=== PATIENT | female | born 1945 | race Caucasian/White ===

== ENCOUNTER → 2017-06-23 | Outpatient (CLI) | payer OTHER ==
[~2017-06-23] MED LIST: ASPIR 8181 M1 PO; ATIVAN1 MG PO; CALCIUM 500 MG1 EACH PO; CLONAZEPAM0.5 MG PO; GINKGO BILOBA40 M1 PO; HYDROCHLOROTHIA25 MG PO; L-LYSINE500 M1 PO; LEVOTHYROXINE75 MCG PO; MSM1000 MG PO; PAXIL10 MG PO; PROBIOTIC1 EAC4 PO; VASOTEC20 MG PO; VITAMIN B122500 MCG PO; VITAMIN C500 M6 PO; VITAMIN D31000 UNIT PO; WELLBUTRIN SR100 MG PO; XANAX0.5 MG PO; ZOCOR10 MG PO
== END | disposition home or self-care (01) ==
LOC: OPR 08:31 → EDSTATUS 09:00
PROC: 0JB63ZX Excision of Chest Subcutaneous Tissue and Fascia, Percutaneous Approach, Diagnostic (ICD-10-PCS; principal; 2017-06-23)
DX: R22.2 Localized swelling, mass and lump, trunk (principal); Z85.850 Personal history of malignant neoplasm of thyroid; E89.0 Postprocedural hypothyroidism; I10 Essential (primary) hypertension; E78.5 Hyperlipidemia, unspecified; M19.90 Unspecified osteoarthritis, unspecified site; Z86.010 Personal history of colon polyps; Z90.710 Acquired absence of both cervix and uterus; Z79.82 Long term (current) use of aspirin; Z80.1 Family history of malignant neoplasm of trachea, bronchus and lung; Z80.3 Family history of malignant neoplasm of breast; Z80.0 Family history of malignant neoplasm of digestive organs; Z80.41 Family history of malignant neoplasm of ovary; Z80.49 Family history of malignant neoplasm of other genital organs; Z82.3 Family history of stroke
CPT/HCPCS: 77012; 85027; 85610; 85730; 88305; 88341 TC; 88342 TC

== ENCOUNTER → 2017-07-12 | Outpatient (CLI) | payer MEDICARE, OTHER | END | disposition home or self-care (01) | LOC: CDC 12:14 | DX: R22.2 Localized swelling, mass and lump, trunk (principal) | CPT/HCPCS: 93000 ==

== ENCOUNTER 2017-07-19 22:11 | Inpatient (IN) | payer OTHER ==
[~2017-07-19] VITALS: Ht 142.2 cm; Wt 88.5 kg
[2017-07-20] VITALS (9 sets, daily range): BP systolic 133–172; BP diastolic 64–107
[2017-07-20 07:12] LABS: PTT 28.4 SEC (25-37)
[2017-07-21] VITALS (11 sets, daily range): BP systolic 108–168; BP diastolic 59–79
[2017-07-21 05:28] LABS: HEMATOCRIT 31.4 % (36.0-46.0); MCH 29.4 PG (29.0-34.0); MCHC 33.4 G/DL (30.0-36.0); PLATELET COUNT 268 K/uL (156-360); RBC DIS.WIDTH-CV 13.5 % (11.8-14.6); RBC DIS.WIDTH-SD 43.7 % (39-53); WHITE BLOOD COUNT 10.4 K/uL (4.1-10.2)
[2017-07-21 05:55] LABS: CHLORIDE 97 MEQ/L (99-109); CREATININE 0.9 MG/DL (0.6-1.3); GFR ESTIMATE (CALCULATED) > 59 mL/min/; GLUCOSE 108 mg/dL (70-99); POTASSIUM 3.9 MEQ/L (3.7-5.4); SODIUM 135 MEQ/L (136-147); UREA NITROGEN (BUN) 20 mg/dL (9-23)
[2017-07-21 06:11] LABS: HEMOGLOBIN 10.5 G/DL (11.9-15.5); RED BLOOD COUNT 3.57 M/uL (3.80-5.20)
[2017-07-22] VITALS (13 sets, daily range): BP systolic 120–154; BP diastolic 55–77
[2017-07-22 05:43] LABS: HEMATOCRIT 31.1 % (36.0-46.0); HEMOGLOBIN 10.3 G/DL (11.9-15.5); MCH 29.3 PG (29.0-34.0); MCHC 33.1 G/DL (30.0-36.0); MCV 88.4 FL (83-99); PLATELET COUNT 244 K/uL (156-360); RBC DIS.WIDTH-CV 13.5 % (11.8-14.6); RBC DIS.WIDTH-SD 43.6 % (39-53); RED BLOOD COUNT 3.52 M/uL (3.80-5.20); WHITE BLOOD COUNT 8.6 K/uL (4.1-10.2)
[2017-07-22 06:09] LABS: CHLORIDE 97 MEQ/L (99-109); CREATININE 0.9 MG/DL (0.6-1.3); GFR ESTIMATE (CALCULATED) > 59 mL/min/; GLUCOSE 106 mg/dL (70-99); POTASSIUM 3.9 MEQ/L (3.7-5.4); SODIUM 134 MEQ/L (136-147); UREA NITROGEN (BUN) 17 mg/dL (9-23)
[2017-07-23] VITALS (10 sets, daily range): BP systolic 97–164; BP diastolic 55–94
[2017-07-23 04:46] LABS: HEMATOCRIT 31.2 % (36.0-46.0); HEMOGLOBIN 10.6 G/DL (11.9-15.5); MCH 29.8 PG (29.0-34.0); MCV 87.6 FL (83-99); PLATELET COUNT 254 K/uL (156-360); RBC DIS.WIDTH-CV 13.4 % (11.8-14.6); RBC DIS.WIDTH-SD 43.8 % (39-53); RED BLOOD COUNT 3.56 M/uL (3.80-5.20); WHITE BLOOD COUNT 7.7 K/uL (4.1-10.2)
[2017-07-24] VITALS (9 sets, daily range): BP systolic 103–157; BP diastolic 54–68
[2017-07-24] MEDS ORDERED: ENDOCET 5-3251 EACH PO (18:44)
[2017-07-24] MEDS ORDERED: MOTRIN600 MG PO (18:44)
[2017-07-24] MEDS ORDERED: DOCUSATE SODIU100 MG PO (18:44)
== END 2017-07-24 19:45 | disposition home or self-care (01) | DRG 827 ==
LOC: ENRESERV 22:11 → 2SOUTH 07-20 06:15 → ENRESERV 07-20 12:02 → 2SOUTH 07-20 12:59 → ENRESERV 07-20 13:27 → 2SOUTH 07-20 14:45 → 4WEST 07-20 14:59 → 2SOUTH 07-20 15:09 → 4WEST 07-24 19:45
PROVIDERS: Surgery; Thoracic Surgery (Cardiothoracic Vascular Surgery)
DX: C37 Malignant neoplasm of thymus (principal); I10 Essential (primary) hypertension; F32.9 Major depressive disorder, single episode, unspecified; M19.90 Unspecified osteoarthritis, unspecified site; E66.9 Obesity, unspecified; Z68.41 Body mass index [BMI] 40.0-44.9, adult
CPT/HCPCS: 71045; 80048; 85027; 85610; 85730; 86850; 86900; 86901; 86920; 87641; 88307; 94640; 94640 76; 97530 GO; 99202; J0690; J1100; J1170; J1644; J1885; J2405; J7120

== ENCOUNTER 2017-09-22 11:42 | Observation (INO) | payer OTHER ==
[~2017-09-22] VITALS: Ht 149.9 cm; Wt 87.9 kg
[~2017-09-22 11:42] MED LIST changes: +ACIDOPHILUS1 EAC3 PO; +CYANOCOBALAM1000 MCG PO; +DOCUSATE SODIU100 MG PO; +ENDOCET 5-3251 EACH PO; -GINKGO BILOBA40 M1 PO; +GINKGO BILOBA60 MG PO; -LEVOTHYROXINE75 MCG PO; +LEVOTHYROXINE88 MCG PO; +MOTRIN600 MG PO; -PROBIOTIC1 EAC4 PO; -VITAMIN B122500 MCG PO; +VITAMIN C W/AC500 M1 PO; -VITAMIN C500 M6 PO; -WELLBUTRIN SR100 MG PO; +WELLBUTRIN XL300 MG PO
[2017-09-22 12:38] LABS: BASOPHIL (%) 0.4 % (0-1); EOSINOPHIL (%) 1.6 % (0-5); EOSINOPHIL COUNT 0.1 K/uL (0-0.3); HEMATOCRIT 34.9 % (36.0-46.0); HEMOGLOBIN 11.7 G/DL (11.9-15.5); IMMATURE GRANULOCYTE (%) 0.3 % (0.0-0.7); LYMPHOCYTE (%) 8.5 % (15-42); LYMPHOCYTE COUNT 0.6 K/uL (1.0-2.8); MCH 28.5 PG (29.0-34.0); MCHC 33.5 G/DL (30.0-36.0); MCV 85.1 FL (83-99); MONOCYTE (%) 10.8 % (3-12); MONOCYTE COUNT 0.8 K/uL (0-0.8); NEUTROPHIL (%) 78.4 % (45-76); NEUTROPHIL COUNT 5.5 K/uL (1.8-6.4); PLATELET COUNT 315 K/uL (156-360); RBC DIS.WIDTH-CV 13.5 % (11.8-14.6); RBC DIS.WIDTH-SD 42.3 % (39-53)
[2017-09-22 12:49] LABS: CHLORIDE 100 mEq/L (99-109); POTASSIUM 3.8 mEq/L (3.7-5.4); SODIUM 138 mEq/L (136-147)
[2017-09-22 12:51] LABS: GLUCOSE 128 mg/dL (70-99)
[2017-09-22 12:55] LABS: CREATININE 0.8 mg/dL (0.6-1.3); GFR ESTIMATE (CALCULATED) > 59 mL/min/
[2017-09-22 12:56] LABS: UREA NITROGEN (BUN) 15 mg/dL (9-23)
[2017-09-22] MEDS ORDERED: ADVIL,NUPRIN,M200 MG PO (14:30)
[2017-09-22] MEDS ORDERED: TYLENOL EXTRA500 MG PO (14:30)
[2017-09-22] MEDS ORDERED: VAPOR INHALER50 MG BOTH NARES (14:30)
[2017-09-22 15:55] VITALS: BP 142/69
[2017-09-22 20:00] VITALS: BP 124/60
[2017-09-23 00:18] VITALS: BP 117/57
[2017-09-23 08:34] VITALS: BP 124/58
[2017-09-23 11:07] VITALS: BP 135/64
[2017-09-23] MEDS ORDERED: KEFLEX500 MG PO (12:09)
[2017-09-23] MEDS ORDERED: PREDNISONE5 MG PO (12:10)
== END 2017-09-23 15:25 | disposition home or self-care (01) ==
LOC: EME 11:42 → EDOF 14:55 → ENRESERV 15:02 → 4SOUTH 15:45
PROVIDERS: Emergency Medicine
DX: L03.116 Cellulitis of left lower limb (principal); L03.115 Cellulitis of right lower limb; I10 Essential (primary) hypertension; E89.0 Postprocedural hypothyroidism; E78.5 Hyperlipidemia, unspecified; D64.9 Anemia, unspecified; F41.9 Anxiety disorder, unspecified; F32.9 Major depressive disorder, single episode, unspecified; Z79.82 Long term (current) use of aspirin; Z98.890 Other specified postprocedural states; Z80.1 Family history of malignant neoplasm of trachea, bronchus and lung; Z88.8 Allergy status to other drugs, medicaments and biological substances
CPT/HCPCS: 73630; 80048; 83605; 85025; 87070; 87075; 87205; 99281; 99284; G0378; J0690; J1644; J2920; J2930

== ENCOUNTER 2017-10-20 11:06 | Inpatient (IN) | payer OTHER ==
[~2017-10-20] VITALS: Ht 142.2 cm; Wt 89.4 kg
[~2017-10-20 11:06] MED LIST changes: +ADVIL,NUPRIN,M200 MG PO; +KEFLEX500 MG PO; +PREDNISONE5 MG PO; +TYLENOL ARTHRI650 MG PO; +VAPOR INHALER50 MG BOTH NARES
[2017-10-20 13:51] LABS: HEMATOCRIT 35.3 % (36.0-46.0); HEMOGLOBIN 11.4 G/DL (11.9-15.5); MCH 27.7 PG (29.0-34.0); MCHC 32.3 G/DL (30.0-36.0); MCV 85.7 FL (83-99); PLATELET COUNT 272 K/uL (156-360); RBC DIS.WIDTH-CV 14.6 % (11.8-14.6); RBC DIS.WIDTH-SD 45.4 % (39-53); RED BLOOD COUNT 4.12 M/uL (3.80-5.20); WHITE BLOOD COUNT 7.5 K/uL (4.1-10.2)
[2017-10-20 14:03] LABS: CHLORIDE 100 mEq/L (99-109); POTASSIUM 3.9 mEq/L (3.7-5.4); SODIUM 139 mEq/L (136-147)
[2017-10-20 14:05] LABS: GLUCOSE 89 mg/dL (70-99)
[2017-10-20 14:08] LABS: CREATININE 0.8 mg/dL (0.6-1.3); GFR ESTIMATE (CALCULATED) > 59 mL/min/
[2017-10-20 14:09] LABS: UREA NITROGEN (BUN) 15 mg/dL (9-23)
[2017-10-20 16:57] VITALS: BP 144/67
[2017-10-20 23:35] VITALS: BP 116/57
[2017-10-21 04:03] VITALS: BP 160/69
[2017-10-21 05:58] LABS: HEMATOCRIT 33.8 % (36.0-46.0); HEMOGLOBIN 10.8 G/DL (11.9-15.5); MCH 27.6 PG (29.0-34.0); MCV 86.2 FL (83-99); PLATELET COUNT 222 K/uL (156-360); RBC DIS.WIDTH-CV 14.6 % (11.8-14.6); RBC DIS.WIDTH-SD 46.4 % (39-53); RED BLOOD COUNT 3.92 M/uL (3.80-5.20); WHITE BLOOD COUNT 5.6 K/uL (4.1-10.2)
[2017-10-21 06:07] LABS: CHLORIDE 100 MEQ/L (99-109); GFR ESTIMATE (CALCULATED) 58 mL/min/; GLUCOSE 103 mg/dL (70-99); POTASSIUM 4.2 MEQ/L (3.7-5.4); SODIUM 139 MEQ/L (136-147); UREA NITROGEN (BUN) 19 mg/dL (9-23)
[2017-10-21 08:56] VITALS: BP 143/79
[2017-10-21 11:28] VITALS: BP 106/58
[2017-10-21 12:04] LABS: HEMOGLOBIN A1c (GLYCOHEMOGLOB) 5.4 % (Below 5.7)
[2017-10-21 20:00] VITALS: BP 142/65
[2017-10-22 05:07] VITALS: BP 158/80
[2017-10-22 08:21] VITALS: BP 129/61
[2017-10-22 11:31] VITALS: BP 113/56
[2017-10-22 17:08] VITALS: BP 129/63
[2017-10-22 20:00] VITALS: BP 98/55
[2017-10-23 04:00] VITALS: BP 102/58
[2017-10-23 08:34] VITALS: BP 130/59
[2017-10-23] MEDS ORDERED: SANTYL30 GM TP (12:15)
[2017-10-23 12:16] VITALS: BP 152/66
[2017-10-23] MEDS ORDERED: CEFEPIME-D2 GM/50 ML IV (13:22)
== END 2017-10-23 15:47 | disposition home or self-care (01) | DRG 580 ==
LOC: EME 11:06 → EXP 11:06 → EDOF 15:47 → ENRESERV 15:49 → 4SOUTH 16:44
PROVIDERS: Internal Medicine; Physician Assistant Medical
DX: L03.115 Cellulitis of right lower limb (principal); L03.116 Cellulitis of left lower limb; E78.5 Hyperlipidemia, unspecified; I10 Essential (primary) hypertension; E03.9 Hypothyroidism, unspecified; F41.9 Anxiety disorder, unspecified; E66.9 Obesity, unspecified; L25.9 Unspecified contact dermatitis, unspecified cause; L97.529 Non-pressure chronic ulcer of other part of left foot with unspecified severity; L97.329 Non-pressure chronic ulcer of left ankle with unspecified severity; L97.519 Non-pressure chronic ulcer of other part of right foot with unspecified severity; Z68.41 Body mass index [BMI] 40.0-44.9, adult; Z79.82 Long term (current) use of aspirin; Z79.899 Other long term (current) drug therapy
CPT/HCPCS: 73610; 73630; 80048; 83036; 83605; 85027; 87040; 87070; 87075; 87076; 87077; 87185; 87186; 87205; 93925; 99281; 99285; J0690; J1644; J2543; J3370; J7050

== ENCOUNTER 2017-11-10 10:38 | Observation (INO) | payer OTHER ==
[~2017-11-10] VITALS: Ht 142.2 cm; Wt 89.8 kg
[~2017-11-10 10:38] MED LIST changes: +CEFEPIME-D2 GM/50 ML IV; +SANTYL30 GM TP
[2017-11-10 12:09] VITALS: BP 128/59
[2017-11-10 14:33] LABS: ALBUMIN 3.3 g/dL (3.2-4.8); CHLORIDE 94 mEq/L (99-109); POTASSIUM 3.7 mEq/L (3.7-5.4); SODIUM 133 mEq/L (136-147)
[2017-11-10 14:35] LABS: GLUCOSE 108 mg/dL (70-99)
[2017-11-10 14:37] LABS: TOTAL BILIRUBIN 0.8 mg/dL (0.0-1.0)
[2017-11-10 14:39] LABS: ALKALINE PHOSPHATASE 128 IU/L (3-129); CREATININE 0.8 mg/dL (0.6-1.3); GFR ESTIMATE (CALCULATED) > 59 mL/min/
[2017-11-10 14:40] LABS: BASOPHIL (%) 0.2 % (0-1); EOSINOPHIL (%) 0.4 % (0-5); EOSINOPHIL COUNT 0.1 K/uL (0-0.3); HEMATOCRIT 31.9 % (36.0-46.0); HEMOGLOBIN 10.4 G/DL (11.9-15.5); IMMATURE GRANULOCYTE (%) 0.9 % (0.0-0.7); LYMPHOCYTE (%) 4.3 % (15-42); LYMPHOCYTE COUNT 0.8 K/uL (1.0-2.8); MCH 27.5 PG (29.0-34.0); MCHC 32.6 G/DL (30.0-36.0); MCV 84.4 FL (83-99); MONOCYTE (%) 7.5 % (3-12); MONOCYTE COUNT 1.4 K/uL (0-0.8); NEUTROPHIL (%) 86.7 % (45-76); NEUTROPHIL COUNT 15.8 K/uL (1.8-6.4); RBC DIS.WIDTH-CV 14.6 % (11.8-14.6); RBC DIS.WIDTH-SD 45.1 % (39-53); RED BLOOD COUNT 3.78 M/uL (3.80-5.20); UREA NITROGEN (BUN) 23 mg/dL (9-23); WHITE BLOOD COUNT 18.3 K/uL (4.1-10.2)
[2017-11-10 14:41] LABS: AST (GOT) 22 IU/L (2-34)
[2017-11-10 14:42] LABS: ALT (GPT) 33 IU/L (3-49)
[2017-11-10 14:48] LABS: PLATELET COUNT 627 K/uL (156-360)
[2017-11-10 14:59] LABS: ERTH.SED.RATE 69 MM/HR (0-30)
[2017-11-10] MEDS ORDERED: ENDOCET 5-3251 EACH PO (15:28)
[2017-11-10] MEDS ORDERED: PREDNISONE20 MG PO (15:28)
[2017-11-10 15:48] VITALS: BP 128/60
[2017-11-10 16:51] LABS: C4 COMPLEMENT 14 MG/DL (10-40)
== END 2017-11-10 18:55 | disposition home or self-care (01) ==
LOC: 3EAST 10:38 → ENRESERV 10:38 → 3EAST 11:46
PROVIDERS: Hospitalist
DX: S91.002A Unspecified open wound, left ankle, initial encounter (principal); S91.001A Unspecified open wound, right ankle, initial encounter; S91.302A Unspecified open wound, left foot, initial encounter; S91.301A Unspecified open wound, right foot, initial encounter; S81.802A Unspecified open wound, left lower leg, initial encounter; S81.801A Unspecified open wound, right lower leg, initial encounter; N39.0 Urinary tract infection, site not specified; I10 Essential (primary) hypertension; E78.5 Hyperlipidemia, unspecified; F41.9 Anxiety disorder, unspecified; E89.0 Postprocedural hypothyroidism; Z79.82 Long term (current) use of aspirin
CPT/HCPCS: 71046; 73590; 73610; 73630; 80053; 80074; 81003; 85025; 85651; 86021 90; 86038; 86140; 86160; 86430; 87040; 87070; 87075; 87077; 87205; G0378; J1644; J2543; J7030; J7050; J7512